=== PATIENT | male | born 1965 | race Hispanic/Latino ===

== ENCOUNTER 2017-07-14 07:00 | Emergency (ER) | payer OTHER ==
[2017-07-14 07:40] LABS: Basophils % (Auto) 1.3 % (0.0-1.8); Eosinophils % (Auto) 1.7 % (0.0-4.3); Hematocrit 39.9 % (35.5-45.6); Hemoglobin 13.6 gm/dl (11.8-15.2); Mean Corpuscular HGB Conc 34 % (32-34); Mean Corpuscular Hemoglobin 32 pg (28-32); Mean Corpuscular Volume 92 fl (84-94); Platelet Count 243 K/mm3 (140-440); Red Blood Count 4.32 M/mm3 (3.65-5.03); Red Cell Distribution Width 13.2 % (13.2-15.2); White Blood Count 9.4 K/mm3 (4.5-11.0)
[2017-07-14 07:42] LABS: Bilirubin,Urine NEG (Negative); Blood,Urine NEG (Negative); Ketones,Urine NEG (Negative); Leukocyte Esterase,Urine NEG (Negative); Mucus,Urine FEW /HPF; Nitrite,Urine NEG (Negative); Protein,Urine <15 mg/dL mg/dL (Negative); Urobilinogen,Urine < 2.0 mg/dL (<2.0); WBC,Urine < 1.0 /HPF (0.0-6.0)
[2017-07-14 07:52] LABS: INR 2.44 (0.87-1.13)
[2017-07-14 07:53] LABS: Partial Thromboplastin Time 52.4 Sec. (24.2-36.6)
[2017-07-14 08:26] LABS: Alanine Aminotransferase 31 units/L (7-56); Albumin 4.3 g/dL (3.9-5); Albumin/Globulin Ratio 1.5 %; Alkaline Phosphatase 48 units/L (35-129); Anion Gap 18 mmol/L; BUN/Creatinine Ratio 21.42; Blood Urea Nitrogen 15 mg/dL (9-20); Calcium 8.9 mg/dL (8.4-10.2); Carbon Dioxide 25 mmol/L (22-30); Chloride 99.7 mmol/L (98-107); Glucose 100 mg/dL (75-100); Lipase 53 units/L (13-60); Potassium 3.8 mmol/L (3.6-5.0); Sodium 139 mmol/L (137-145); Total Protein 7.1 g/dL (6.3-8.2)
[2017-07-14 08:27] LABS: RBC,Urine < 1.0 /HPF (0.0-6.0)
[2017-07-14] MEDS ORDERED: MORPHINE IV ONE (10:49)
[2017-07-14] MEDS ORDERED: NACL 0.9% 1000 ML 1,000 ML IV ONE (10:49)
[2017-07-14] MEDS ORDERED: ZOFRAN IV ONE (10:50)
[2017-07-14] MEDS ORDERED: BENADRYL IV ONE (10:50)
--- NOTE | 2017-07-14 10:50 | Emergency Department Report ---
ED Abdominal Pain HPI - General Chief Complaint: Abdominal Pain Stated Complaint: ABDOMINAL PAIN Time Seen by Provider: 07/14/17 10:01 Source: patient Mode of arrival: Ambulatory Limitations: No Limitations - History of Present Illness Initial Comments: Patient is a 51-year-old male with past medical history of blood clots who presents with right lower quadrant abdominal pain. He states that he was working on his car on Friday and then he sat up and he has some right lower quadrant pain. He also states that there was a knot on the right lower quadrant of the stomach. He states that his pain is a 4 out of 10 located in the right lower quadrant as a sore type of pain it does not radiate getting up from lying position makes it worse rest makes it better. Patient denies having any nausea or vomiting. Patient takes daily warfarin for his history of blood clots he takes 5 mg of Coumadin daily. He has been compliant with his medication. Patient has no other complaints. Patient's last bowel movement was today. Severity scale (0 -10): 8 - Related Data Home Medications Medication Instructions Recorded Confirmed Last Taken Famotidine [Pepcid] 20 mg PO BID 07/14/17 07/14/17 07/14/17 Melatonin 3 mg PO 07/14/17 07/13/17 Niacin [Niacin ER] 1,000 mg PO 07/14/17 07/14/17 Spironolactone [Aldactone] 25 mg PO QDAY 07/14/17 07/14/17 07/14/17 Warfarin [Coumadin] 5 mg PO QDAY 07/14/17 07/14/17 07/14/17 amLODIPine [Norvasc] 5 mg PO DAILY 07/14/17 07/14/17 07/14/17 clonazePAM 0.5 mg PO 07/14/17 07/14/17 valACYclovir [Valtrex] 500 mg PO BID 07/14/17 07/14/17 07/14/17 Previous Rx's Medication Instructions Recorded Last Taken Type HYDROcodone/APAP 7.5-325 [[place] 1 each PO Q6HR PRN #15 tablet 07/14/17 Unknown Rx 7.5/325] Allergies Allergy/AdvReac Type Severity Reaction Status Date / Time No Known Allergies Allergy Unverified 02/17/14 13:30 ED Review of Systems ROS: Stated complaint: ABDOMINAL PAIN Other details as noted in HPI Constitutional: denies: chills, fever Eyes: denies: eye pain, eye discharge, vision change ENT: denies: ear pain, throat pain Respiratory: denies: cough, shortness of breath, wheezing Cardiovascular: denies: chest pain, palpitations Endocrine: no symptoms reported Gastrointestinal: abdominal pain. denies: nausea, diarrhea Genitourinary: denies: urgency, dysuria Musculoskeletal: denies: back pain, joint swelling, arthralgia Skin: denies: rash, lesions Neurological: denies: headache, weakness, paresthesias Psychiatric: denies: anxiety, depression Hematological/Lymphatic: denies: easy bleeding, easy bruising ED Past Medical Hx - Past Medical History Previous Medical History?: Yes Hx Hypertension: Yes Additional medical history: Prior Clots - Surgical History Past Surgical History?: No - Social History Smoking Status: Former Smoker Substance Use Type: Alcohol - Medications Home Medications: Home Medications Medication Instructions Recorded Confirmed Last Taken Type Famotidine [Pepcid] 20 mg PO BID 07/14/17 07/14/17 07/14/17 History HYDROcodone/APAP 7.5-325 [[place] 1 each PO Q6HR PRN #15 tablet 07/14/17 Unknown Rx 7.5/325] Melatonin 3 mg PO 07/14/17 07/13/17 History Niacin [Niacin ER] 1,000 mg PO 07/14/17 07/14/17 History Spironolactone [Aldactone] 25 mg PO QDAY 07/14/17 07/14/17 07/14/17 History Warfarin [Coumadin] 5 mg PO QDAY 07/14/17 07/14/17 07/14/17 History amLODIPine [Norvasc] 5 mg PO DAILY 07/14/17 07/14/17 07/14/17 History clonazePAM 0.5 mg PO 07/14/17 07/14/17 History valACYclovir [Valtrex] 500 mg PO BID 07/14/17 07/14/17 07/14/17 History ED Physical Exam - General Limitations: No Limitations General appearance: alert, in no apparent distress - Head Head exam: Present: atraumatic, normocephalic - Eye Eye exam: Present: normal appearance - ENT ENT exam: Present: mucous membranes moist - Neck Neck exam: Present: normal inspection - Respiratory Respiratory exam: Present: normal lung sounds bilaterally. Absent: respiratory distress - Cardiovascular Cardiovascular Exam: Present: regular rate, normal rhythm. Absent: systolic murmur, diastolic murmur, rubs, gallop - GI/Abdominal GI/Abdominal exam: Present: normal bowel sounds, other (area of tenderness on the right lower quadrant bowel sounds intact.) - Rectal Rectal exam: Present: deferred - Extremities Exam Extremities exam: Present: normal inspection - Back Exam Back exam: Present: normal inspection - Neurological Exam Neurological exam: Present: alert, oriented X3 - Psychiatric Psychiatric exam: Present: normal affect, normal mood - Skin Skin exam: Present: warm, dry, intact, normal color. Absent: rash ED Course Vital Signs 07/14/17 07/14/17 07/14/17 07:05 10:40 12:58 Temperature 98.5 F 98.3 F Pulse Rate 72 66 68 Respiratory 20 18 18 Rate Blood Pressure 156/100 167/91 158/80 [Right] O2 Sat by Pulse 100 97 99 Oximetry - Reevaluation(s) Reevaluation #1: 07/14/17 13:27 Reevaluated patient states the pain is better. I will discuss with the tactical debriefer officer about his warfarin to see when he can restart it. Reevaluation #2: 07/14/17 14:31 We'll give patient oral analgesic medication H and states that he feels that that he can go home. I engaged in shared decision making with the patient and patient will be discharged. Pt is in no distress pain is a 1 out 10 - Consultations Consultation #1: 07/14/17 14:[address] Choudhary the tactical debriefer officer habilitative interventionist. He states that patient can be held off on his warfarin until it falls up with his primary care provider. And then since his pain is better controlled he is good to be discharged. ED Medical Decision Making - Lab Data Result diagrams: 07/14/17 07:18 07/14/17 07:18 Lab Results 07/14/17 07/14/17 07/14/17 Range/Units 07:18 07:18 07:18 WBC 9.4 (4.5-11.0) K/mm3 RBC 4.32 (3.65-5.03) M/mm3 Hgb 13.6 (11.8-15.2) gm/dl Hct 39.9 (35.5-45.6) % MCV 92 (84-94) fl MCH 32 (28-32) pg MCHC 34 (32-34) % RDW 13.2 (13.2-15.2) % Plt Count 243 (140-440) K/mm3 Lymph % (Auto) 14.5 (13.4-35.0) % [place] % (Auto) 10.4 H (0.0-7.3) % Eos % (Auto) 1.7 (0.0-4.3) % Baso % (Auto) 1.3 (0.0-1.8) % Lymph # 1.4 (1.2-5.4) K/mm3 [place] # 1.0 H (0.0-0.8) K/mm3 Eos # 0.2 (0.0-0.4) K/mm3 Baso # 0.1 (0.0-0.1) K/mm3 Seg Neutrophils % 72.1 H (40.0-70.0) % Seg Neutrophils # 6.8 (1.8-7.7) K/mm3 PT 26.6 H (12.2-14.9) Sec. INR 2.44 H (0.87-1.13) APTT 52.4 H (24.2-36.6) Sec. Sodium 139 (137-145) mmol/L Potassium 3.8 (3.6-5.0) mmol/L Chloride 99.7 (98-107) mmol/L Carbon Dioxide 25 (22-30) mmol/L Anion Gap 18 mmol/L BUN 15 (9-20) mg/dL Creatinine 0.7 L (0.8-1.5) mg/dL Estimated GFR > 60 ml/min BUN/Creatinine Ratio 21.42 % Glucose 100 (75-100) mg/dL Calcium 8.9 (8.4-10.2) mg/dL Total Bilirubin 0.80 (0.1-1.2) mg/dL AST 29 (5-40) units/L ALT 31 (7-56) units/L Alkaline Phosphatase 48 (35-129) units/L Total Protein 7.1 (6.3-8.2) g/dL Albumin 4.3 (3.9-5) g/dL Albumin/Globulin Ratio 1.5 % Lipase 53 (13-60) units/L Urine Color (Yellow) Urine Turbidity (Clear) Urine pH (5.0-7.0) Ur Specific [place] (1.003-1.030) Urine Protein (Negative) mg/dL Urine Glucose (UA) (Negative) mg/dL Urine Ketones (Negative) mg/dL Urine Blood (Negative) Urine Nitrite (Negative) Urine Bilirubin (Negative) Urine Urobilinogen (<2.0) mg/dL Ur Leukocyte Esterase (Negative) Urine WBC (Auto) (0.0-6.0) /HPF Urine RBC (Auto) (0.0-6.0) /HPF Urine Mucus /HPF 07/14/17 Range/Units 07:22 WBC (4.5-11.0) K/mm3 RBC (3.65-5.03) M/mm3 Hgb (11.8-15.2) gm/dl Hct (35.5-45.6) % MCV (84-94) fl MCH (28-32) pg MCHC (32-34) % RDW (13.2-15.2) % Plt Count (140-440) K/mm3 Lymph % (Auto) (13.4-35.0) % [place] % (Auto) (0.0-7.3) % Eos % (Auto) (0.0-4.3) % Baso % (Auto) (0.0-1.8) % Lymph # (1.2-5.4) K/mm3 [place] # (0.0-0.8) K/mm3 Eos # (0.0-0.4) K/mm3 Baso # (0.0-0.1) K/mm3 Seg Neutrophils % (40.0-70.0) % Seg Neutrophils # (1.8-7.7) K/mm3 PT (12.2-14.9) Sec. INR (0.87-1.13) APTT (24.2-36.6) Sec. Sodium (137-145) mmol/L Potassium (3.6-5.0) mmol/L Chloride (98-107) mmol/L Carbon Dioxide (22-30) mmol/L Anion Gap mmol/L BUN (9-20) mg/dL Creatinine (0.8-1.5) mg/dL Estimated GFR ml/min BUN/Creatinine Ratio % Glucose (75-100) mg/dL Calcium (8.4-10.2) mg/dL Total Bilirubin (0.1-1.2) mg/dL AST (5-40) units/L ALT (7-56) units/L Alkaline Phosphatase (35-129) units/L Total Protein (6.3-8.2) g/dL Albumin (3.9-5) g/dL Albumin/Globulin Ratio % Lipase (13-60) units/L Urine Color Yellow (Yellow) Urine Turbidity Clear (Clear) Urine pH 6.0 (5.0-7.0) Ur Specific [place] 1.012 (1.003-1.030) Urine Protein <15 mg/dl (Negative) mg/dL Urine Glucose (UA) Neg (Negative) mg/dL Urine Ketones Neg (Negative) mg/dL Urine Blood Neg (Negative) Urine Nitrite Neg (Negative) Urine Bilirubin Neg (Negative) Urine Urobilinogen < 2.0 (<2.0) mg/dL Ur Leukocyte Esterase Neg (Negative) Urine WBC (Auto) < 1.0 (0.0-6.0) /HPF Urine RBC (Auto) < 1.0 (0.0-6.0) /HPF Urine Mucus Few /HPF - Radiology Data Radiology results: report reviewed, image reviewed CT scan of abdomen: Shows inferior rectus muscle hematoma 6 x 4 x 6 cm - Medical Decision Making Chief medical diagnosis: Inferior abd rectus wall hematoma Differential diagnosis: Inguinal hernia, periumbilical hernia I will get CBC, CMP, INR, type and screen, CT scan of the abdomen, IV analgesic medication, IV antiemetics, IV fluids Patient's CT scan shows inferior abd rectus wall muscle hematoma. Thus patient' s care with Dr. Choudhary the tactical debriefer officer habilitative interventionist. Patient's pain is better controlled he states the patient can be discharged. With pain control and no warfarin until he follows up with his PCP. Discussed plan with patient and he agrees with plan. I will send patient home with [place]. Additional verbal discharge instructions were given. Critical care attestation.: If time is entered above; I have spent that time in minutes in the direct care of this critically ill patient, excluding procedure time. ED Disposition Clinical Impression: Abdominal wall hematoma Qualifiers: Encounter type: initial encounter Qualified Code(s): S30.1XXA - Contusion of abdominal wall, initial encounter Abdominal pain Qualifiers: Abdominal location: right lower quadrant Qualified Code(s): R10.31 - Right lower quadrant pain Disposition: DC- TO HOME OR SELFCARE Is pt being admited?: No Does the pt Need Aspirin: No Condition: Stable Instructions: Contusion in Adults (ED) Additional Instructions: Please do not resume your warfarin until you see your primary care provider. Prescriptions: HYDROcodone/APAP 7.5-325 [[place] 7.5/325] 1 each PO Q6HR PRN #15 tablet PRN Reason: Pain Referrals: LINDSEY FIELD JR, MD [Primary Care Provider] - 3-5 Days Forms: Work/School Release Form(ED) Time of Disposition: 14:27
--- NOTE | 2017-07-14 12:35 | Cat Scan Report ---
CT SCAN OF THE ABDOMEN AND PELVIS WITH CONTRAST: HISTORY: Right inguinal pain, mass.. TECHNIQUE: Helical CT in 1.25mm intervals following IV contrast. Sagittal and coronal reconstructions. FINDINGS: There is thickening of the right inferior abdominal rectus muscle. There is a subtle hyperdense area measuring up to 6.2 x 4.0 x 6.2 cm. This presumably represents an intramuscular hematoma. The liver is normal in size and is without focal defect. No gallstones or biliary dilatation are noted. The spleen and pancreas demonstrate a normal size and attenuation with no evidence of abnormal mass. The kidneys are normal in size and position with no evidence of hydronephrosis or mass. 2.6 cm simple cyst in the superior left kidney is noted. The adrenal glands are normal. There is no intestinal obstruction or ascites. Normal appendix. The abdominal aorta is normal. No abnormalities are identified within the retroperitoneum or mesentery. There is no evidence of peritoneal air or fluid. There is no evidence of any abnormal masses or fluid collections within the pelvis. No adenopathy is identified. The bladder is normal. No inguinal hernia. IMPRESSION: Findings are most consistent with a right inferior abdominal rectus muscle hematoma.
[2017-07-14 12:59] VITALS: BP 158/80
[2017-07-14] MEDS ORDERED: NORCO 10/325 PO ONE (14:25)
== END 2017-07-14 14:45 | disposition home or self-care (01) ==
LOC: ED 07:00
DX: S30.1XXA Contusion of abdominal wall, initial encounter (principal); R10.31 Right lower quadrant pain; I10 Essential (primary) hypertension; Z87.891 Personal history of nicotine dependence; Z79.01 Long term (current) use of anticoagulants
CPT/HCPCS: 36415; 74177; 80053; 81001; 83690; 85025; 85610; 85730; 96361; 96374; 96375; 99284; J1200; J2270; J2405; J7030; Q9967

== ENCOUNTER 2017-07-15 23:16 | Emergency (ER) | payer OTHER ==
[2017-07-16 00:22] LABS: Basophils % (Auto) 0.5 % (0.0-1.8); Eosinophils % (Auto) 0.7 % (0.0-4.3); Hematocrit 36.5 % (35.5-45.6); Hemoglobin 12.4 gm/dl (11.8-15.2); Mean Corpuscular HGB Conc 34 % (32-34); Mean Corpuscular Hemoglobin 32 pg (28-32); Mean Corpuscular Volume 92 fl (84-94); Platelet Count 244 K/mm3 (140-440); Red Blood Count 3.95 M/mm3 (3.65-5.03); Red Cell Distribution Width 13.1 % (13.2-15.2); White Blood Count 12.2 K/mm3 (4.5-11.0)
[2017-07-16 00:34] LABS: INR 2.14 (0.87-1.13)
[2017-07-16 00:35] LABS: Partial Thromboplastin Time 50.1 Sec. (24.2-36.6)
[2017-07-16 00:40] LABS: Anion Gap 19 mmol/L; BUN/Creatinine Ratio 17.14; Blood Urea Nitrogen 12 mg/dL (9-20); Calcium 8.9 mg/dL (8.4-10.2); Carbon Dioxide 25 mmol/L (22-30); Chloride 97.9 mmol/L (98-107); Glucose 114 mg/dL (75-100); Potassium 3.8 mmol/L (3.6-5.0); Sodium 138 mmol/L (137-145)
--- NOTE | 2017-07-16 00:52 | Cat Scan Report ---
FINAL REPORT EXAM: CT ABDOMEN PELVIS WO CON HISTORY: pain, hematoma, COMPARISON: CT abdomen pelvis from July 14, 2017. TECHNIQUE: Contiguous axial images were obtained. Additional sagittal and coronal reformatted images were obtained. FINDINGS: Re-demonstration of rectus sheath hematoma on the right. Hematoma in greatest axial dimension measures approximately 7.0 x 3.9 centimeters in craniocaudal dimension measures approximately 15 centimeters. On prior exam the hematoma measures 6.4 x 3.4 x 11.1 centimeters. Mild adjacent fat stranding. There may be mild secondary inflammation adjacent urinary bladder. 4 millimeter noncalcified nodule left lower lobe. This portion of the long not included on prior study. There is a stable 2 millimeter noncalcified subpleural nodule at the lateral margin of the left lower lobe. Liver, spleen, pancreas and adrenal glands are grossly unremarkable. No calcified gallstones. Superior left renal cyst measuring 2 x 2 centimeters. Punctate bilateral nonobstructive renal calculi measuring approximately 2 millimeters each. Aorta and IVC are normal in caliber. Moderate calcified plaque along the aorta. Prostate gland is grossly unremarkable. Large and small bowel loops normal in caliber. Moderate stool in the colon. No focal inflammatory changes the bowel. The appendix is partially gas-filled and normal in caliber. Lumbar vertebral body heights preserved. Bony pelvis is grossly intact. IMPRESSION: Interval increase in size of right rectus sheath hematoma. Mild adjacent fat stranding slightly progressed from prior study which may cause mild secondary inflammation of the urinary bladder. There are 2 noncalcified nodules left lower lobe measuring 2 and 4 millimeters each. These may be postinflammatory. If the patient has risk factors such as smoking, followup exam within 12 months could be performed to ensure stability.
[2017-07-16 02:34] VITALS: BP 148/97
--- NOTE | 2017-07-16 03:26 | Ultrasound Report ---
FINAL REPORT EXAM: US TESTICULAR DOPPLER COMP HISTORY: pain swelling COMPARISON: None available. TECHNIQUE: Several real-time grayscale and color Doppler images were obtained. Spectral analysis. FINDINGS: The right testicle measures 4.2 x 2.3 x 4.4 centimeters. Left testicle measures 4.5 x 2.2 x 3.3 centimeters. There is a 3 millimeter calcification centrally within the right testicle. No solid testicular mass bilaterally. Spectral analysis demonstrates arterial waveforms the bilateral testicles. 5 millimeter hypoechoic structure in the right epididymal head likely reflecting a proteinaceous cyst. There are 2 small cysts left epididymal head measuring 8 by 8 x 10 millimeters and 4 x 3 x 6 millimeters. Trace right-sided hydrocele. No asymmetric vascularity suggest acute inflammation. No varicocele demonstrated. IMPRESSION: There is vascular flow to the bilateral testicles without solid mass. Single calcification centrally in the right testicle, benign finding. Benign left epididymal head cysts and 5 millimeter proteinaceous cyst right epididymal head. Trace right-sided hydrocele.
== END 2017-07-16 08:14 | disposition left against medical advice (07) ==
LOC: ED 23:16
DX: R10.9 Unspecified abdominal pain (principal); Z53.21 Procedure and treatment not carried out due to patient leaving prior to being seen by health care provider
CPT/HCPCS: 36415; 74176; 80048; 82140; 82805; 85025; 85610; 85730; 93975